=== PATIENT | male | born 1995 | race Two or more races ===

== ENCOUNTER 2020-08-30 18:42 | Emergency (ER) | payer MEDICARE, MEDICAID ==
[~2020-08-30] VITALS: Ht 170.2 cm; Wt 85.5 kg
[2020-08-30 18:49] VITALS: BP 122/69
--- NOTE | 2020-08-30 20:35 | NUR ---
PT TO ROOM FROM LOBBY. PT CALM AND COOPERATIVE; CONTINUES TO DENY SI/HI
--- NOTE | 2020-08-30 20:52 | NUR ---
PT REFUSING TO ANSWER SI SCREENING QUESTIONS. REFUSING REPEAT VS. OTHERWISE APPROPRIATE AND COOPERATIVE.
--- NOTE | 2020-08-30 21:13 | NUR ---
PT CONTINUES TO REST COMFORTABLY IN GURNEY W EYES CLOSED. EVEN/REGULAR RESPIRATIONS NOTED.
--- NOTE | 2020-08-30 22:15 | NUR ---
DC EDUCATION PROVIDED, PT DEMONSTRATES UNDERSTANDING. PT AMBULATED STEADILY TO DC WITH RN. PROVIDED INFORMATION FOR LOCAL PSYCH FACILITIES. PROVIDED TAXI VOUCHER TO [employer]. PT DRESSED APPROPRIATELY FOR WEATHER AND HAS BEEN PROVIDED FOOD
== END 2020-08-30 22:28 | disposition home or self-care (01) ==
LOC: ED 21:38
DX: F31.9 Bipolar disorder, unspecified (principal); Z72.9 Problem related to lifestyle, unspecified; Z59.0 Homelessness
CPT/HCPCS: 99281